=== PATIENT | male | born 1995 | race Caucasian/White ===

== ENCOUNTER 2020-10-16 16:40 | Emergency (ER) | payer SELFPAY ==
[2020-10-16 17:08] VITALS: BP 127/81; PULSE 101; RESP 16; TEMP 98.4
[2020-10-16] MEDS ORDERED: PENICILLIN V POTASSIUM 250 MG TAB PO STA (17:59)
--- NOTE | 2020-10-16 18:06 | ED ---
ENT HPI - General Chief complaint: Dental/Oral Stated complaint: Near Syncope Time Seen by Provider: 10/16/20 17:05 Source: patient Mode of arrival: ambulatory Limitations: no limitations - History of Present Illness Initial comments: 25-year-old female presents emergency Department with reported dental pain. Patient admits to right lower jaw pain for the past several days. She followed up with her dentist and they did refer her to an oral surgeon. She has impacted wisdom teeth. Patient is concerned for infection and she states that she has felt tired and the pain has been getting worse. She has been taking Tylenol for pain control. She denies inability to swallow. No fevers or chills. Denies any nausea or vomiting. She does not receive normal dental care. No concern for . No other alleviating, precipitating or modifying factors - Related Data Previous Rx's Medication Instructions Recorded Penicillin V Potassium [Pen Vee K] 500 mg PO QID #28 tablet 10/16/20 Allergies Allergy/AdvReac Type Severity Reaction Status Date / Time No Known Allergies Allergy Verified 10/16/20 17:05 Review of Systems ROS Statement: Those systems with pertinent positive or pertinent negative responses have been documented in the HPI. ROS Other: All systems not noted in ROS Statement are negative. Past Medical History Past Medical History: No Reported History History of Any Multi-Drug Resistant Organisms: None Reported Past Surgical History: Appendectomy, Section Past Psychological History: Anxiety, Depression Smoking Status: Current every day smoker Past Alcohol Use History: None Reported Past Drug Use History: None Reported General Exam Limitations: no limitations Eye exam: Present: normal appearance, PERRL, EOMI. Absent: scleral icterus, conjunctival injection, periorbital swelling ENT exam: Present: normal exam, mucous membranes moist, other (no drooling, trismus, hoarseness or stridor. dusky appearance to tooth #16. Partially covered by gum. no adjacent abscess) Neck exam: Present: normal inspection. Absent: tenderness, meningismus, lymphadenopathy Course Vital Signs 10/16/20 17:05 Temperature 98.4 F Pulse Rate 101 H Respiratory 16 Rate Blood Pressure 127/81 O2 Sat by Pulse 100 Oximetry Medical Decision Making - Medical Decision Making Upon arrival patient was placed in a hallway 21. Thorough history and physical exam was performed. No signs of [place] angina. No signs of dental abscess. Patient was placed on antibiotics at this time. She will take Motrin and Tylenol at home for pain control. Patient is instructed to call in the morning to make an appointment with the oral surgeon. Return to the emergency room for any new or worsening symptoms. Patient discharged home in stable condition Disposition Clinical Impression: Dentalgia Disposition: HOME SELF-CARE Condition: Stable Instructions (If sedation given, give patient instructions): Toothache (ED) Additional Instructions: Please take the antibiotics as directed. Call and make an appointment with the dentist. Return to the emergency room for any new or worsening symptoms. Take Tylenol and Motrin for pain. Prescriptions: Penicillin V Potassium [Pen Vee K] 500 mg PO QID #28 tablet Is patient prescribed a controlled substance at d/c from ED?: No Referrals: None,Stated [Primary Care Provider] - 1-2 days Time of Disposition: 18:06
== END 2020-10-16 18:18 | disposition home or self-care (01) ==
LOC: EC 16:40
DX: K08.89 Other specified disorders of teeth and supporting structures (principal); F41.9 Anxiety disorder, unspecified; F32.9 Major depressive disorder, single episode, unspecified; F17.200 Nicotine dependence, unspecified, uncomplicated
CPT/HCPCS: 99283

== ENCOUNTER 2020-11-02 03:23 | Emergency (ER) | payer OTHER ==
[2020-11-02] MEDS ORDERED: NALOXONE 0.4 MG/ML 1 ML VIAL SQ STA (03:34)
--- NOTE | 2020-11-02 03:36 | ED ---
Overdose HPI - General Chief Complaint: Overdose Stated Complaint: Overdose Time Seen by Provider: 11/02/20 03:28 Source: patient Mode of arrival: ambulatory Limitations: no limitations - Related Data Previous Rx's Medication Instructions Recorded Penicillin V Potassium [Pen Vee K] 500 mg PO QID #28 tablet 10/16/20 Allergies Allergy/AdvReac Type Severity Reaction Status Date / Time No Known Allergies Allergy Verified 11/02/20 03:29 Review of Systems ROS Statement: Those systems with pertinent positive or pertinent negative responses have been documented in the HPI. ROS Other: All systems not noted in ROS Statement are negative. Past Medical History Past Medical History: No Reported History History of Any Multi-Drug Resistant Organisms: None Reported Past Surgical History: Appendectomy, Section Past Psychological History: Anxiety, Depression Smoking Status: Current every day smoker Past Alcohol Use History: None Reported Past Drug Use History: Heroin, IV Drug Use, Marijuana, Opiates General Exam Limitations: no limitations Course Vital Signs 11/02/20 11/02/20 03:25 03:50 Temperature 98.5 F Pulse Rate 135 H Respiratory 20 18 Rate Blood Pressure 124/63 O2 Sat by Pulse 95 Oximetry Disposition Clinical Impression: Accidental drug overdose, Drug overdose Disposition: HOME SELF-CARE Condition: Good Instructions (If sedation given, give patient instructions): Adult Overdose (ED) Is patient prescribed a controlled substance at d/c from ED?: No Referrals: None,Stated [Primary Care Provider] - 1-2 days
[2020-11-02 04:01] VITALS: RESP 18
[2020-11-02 04:31] VITALS: BP 115/82; PULSE 122
[2020-11-02 04:36] VITALS: TEMP 97.4
== END 2020-11-02 04:32 | disposition home or self-care (01) ==
LOC: EC 03:23
DX: T50.901A Poisoning by unspecified drugs, medicaments and biological substances, accidental (unintentional), initial encounter (principal); F17.200 Nicotine dependence, unspecified, uncomplicated; Z90.49 Acquired absence of other specified parts of digestive tract; F12.90 Cannabis use, unspecified, uncomplicated
CPT/HCPCS: 99283; 96372; J2310